=== PATIENT | male | born 1975 | race African-American/Black ===

== ENCOUNTER 2017-02-03 11:35 | Emergency (ER) | payer MEDICAID ==
[~2017-02-03] VITALS: Ht 177.8 cm; Wt 80.0 kg
[2017-02-03] MEDS ORDERED: SODIUM CHLORIDE 0.9% 1,000 ML IV ONE (11:50)
[2017-02-03] MEDS ORDERED: MORPHINE SULFATE 4 MG/ML CPJ (NOT FOR IM USE) IV STA (11:50)
[2017-02-03] MEDS ORDERED: ONDANSETRON HCL 4MG/2ML VIAL IV STA (11:50)
[2017-02-03 12:21] LABS: BASOPHILS % 0.8 % (0.0-2.0); EOSINOPHILS % 1.1 % (0.0-5.0); HEMOGLOBIN. 14.9 g/dL (14.0-18.0); LYMPHOCYTES % 30.1 % (20.0-50.0); MEAN CORPUSCULAR HEMOGLOBIN 29.5 pg (28.0-32.0); MEAN CORPUSCULAR VOLUME 91.3 fL (80.0-94.0); MEAN PLATELET VOLUME 7.4 fl (7.4-10.4); MONOCYTES % 10.6 % (2.0-8.0); NEUTROPHILS % 57.4 % (40.0-76.0); PLATELET 290 x1000/uL (130-400); RED BLOOD CELL COUNT 5.04 mill/uL (4.7-6.1)
[2017-02-03 12:24] LABS: INR 1.1; PROTHROMBIN TIME 10.9 sec
[2017-02-03 12:34] LABS: CARBON DIOXIDE 29 mEq/L (21-32); CHLORIDE 106 mEq/L (98-107); CREATINE KINASE 89 IU/L (39-308); ETHANOL BLOOD < 10 mg/dL; TROPONIN I < 0.02 ng/mL (0.00-0.04)
[2017-02-03 13:08] LABS: CLARITY URINE CLEAR (CLEAR); COLOR URINE DARK YELLOW (YELLOW); GLUCOSE URINE NEGATIVE (NEGATIVE); KETONES URINE TRACE (NEGATIVE); LEUKOCYTE ESTERASE URINE TRACE (NEGATIVE); NITRITE URINE NEGATIVE (NEGATIVE); OCCULT BLOOD URINE TRACE (NEGATIVE); PROTEIN URINE TRACE (NEGATIVE); SPECIFIC GRAVITY URINE 1.028 (1.005-1.030)
[2017-02-03 13:42] LABS: *AMPHETAMINES SCREEN URINE NEGATIVE (NEGATIVE); *BARBITURATES SCREEN URINE NEGATIVE (NEGATIVE); *BENZODIAZEPINES SCREEN URINE NEGATIVE (NEGATIVE); *COCAINE SCREEN URINE NEGATIVE (NEGATIVE); CANNABINOID URINE SCREEN PRESUMTIVE POSITIVE (NEGATIVE); METHADONE URINE SCREEN NEGATIVE (NEGATIVE); OPIATES URINE SCREEN NEGATIVE (NEGATIVE); PHENCYCLIDINE URINE SCREEN NEGATIVE (NEGATIVE)
[2017-02-03 14:34] VITALS: BP 120/76
== END 2017-02-03 15:03 | disposition home or self-care (01) ==
LOC: ER 12:11
DX: S09.90XA Unspecified injury of head, initial encounter (principal); R55 Syncope and collapse; T40.7X1A Poisoning by cannabis (derivatives), accidental (unintentional), initial encounter; W19.XXXA Unspecified fall, initial encounter; Y92.89 Other specified places as the place of occurrence of the external cause; I10 Essential (primary) hypertension; N39.0 Urinary tract infection, site not specified; E86.0 Dehydration; Z87.891 Personal history of nicotine dependence
CPT/HCPCS: 36415; 70450; 80053; 80305; 81001; 82550; 83880; 84443; 84484; 85025; 85610; 93005; 96360; 99285; G0482; J7030; Z7610